=== PATIENT | female | born 1975 | race Asian ===

== ENCOUNTER 2019-10-09 16:25 | Emergency (ER) | payer OTHER ==
[~2019-10-09] VITALS: Ht 157.5 cm; Wt 70.0 kg
[2019-10-09 17:17] VITALS: BP 125/80
== END 2019-10-09 17:55 | disposition home or self-care (01) ==
LOC: ER 16:25
DX: Z03.818 Encounter for observation for suspected exposure to other biological agents ruled out (principal); Z53.21 Procedure and treatment not carried out due to patient leaving prior to being seen by health care provider
CPT/HCPCS: 87635; C9803